=== PATIENT | female | born 1970 | race Hispanic/Latino ===

== ENCOUNTER 2016-05-30 17:34 | Emergency (ER) | payer MEDICARE, MEDICAID ==
[~2016-05-30] VITALS: Ht 160 cm; Wt 120.5 kg
[~2016-05-30 17:34] MED LIST: ALBU8.5H4 IH; EPIN0.3P2 IJ; ESTR1TAB24 PO; FURO40TA4 PO; METF500T4 PO; MULT-1007 PO; PANT40TA2 PO; POTA10TA7 PO; PROM25TA14 PO
[2016-05-30 17:38] VITALS: BP 147/103; PULSE 121; RESP 24; O2SAT 95
[2016-05-30] MEDS ORDERED: Albuterol-Ipratropium 3 mL Inhalation Solution NEB ONE (17:45)
[2016-05-30] MEDS ORDERED: Ipratropium 0.02% 0.5 mg/2.5 mL Inhalation Solution NEB ONE (17:50)
[2016-05-30] MEDS ORDERED: Albuterol 2.5 mg/3 mL Inhalation Solution NEB ONE (17:50)
--- NOTE | 2016-05-30 17:52 | ED.REPORT ---
HPI-Dyspnea / Wheezing Date of Service May 30, 2016 ED Provider: Zoltan Rosen MD A 46 year old female with a medical history including asthma, polycythemia vera , diabetes mellitus, and GERD presents to the ED with shortness of breath onset three weeks ago. The patient's symptoms began with a mild cough, which progressed to include posttussive emesis, wheezing, and chest pain described as "pressure." The patient denies other symptoms. She has had similar symptoms in the past associated with asthma. Nursing Notes Stated Complaint: ASTHMA/SOB Chief Complaint: Respiratory Distress Nursing Notes Reviewed: Yes ([place], [place] not reconciled) Allergies: Coded Allergies: Penicillins (Verified Allergy, Severe, anaphalaxis, 05/30/16) codeine (Verified Allergy, Severe, hives, 05/30/16) prochlorperazine (Verified Allergy, Unknown, UNKNOWN, 05/30/16) droperidol (Verified Adverse Reaction, Severe, vomiting, 05/30/16) metoclopramide HCl (Verified Adverse Reaction, Severe, vomiting, 05/30/16) Uncoded Allergies: bee stings (Allergy, Severe, anaphalaxis, 12/30/09) REGALAN (Allergy, Unknown, rash/vomiting, 09/29/14) Scheduled Albuterol HFA (Proair HFA) 8.5 Gm Hfa.aer.ad 2 PUFFS INHALATION Q4H Estradiol (Estradiol) 1 Mg Tablet 1 MG PO DAILY Furosemide (Furosemide) 40 Mg Tablet 40 MG PO DAILY Metformin (Metformin) 500 Mg Tablet 500 MG PO BIDWM Multivitamin (Multi-Vitamin Daily) 1 Each Tablet 1 EACH PO DAILY Pantoprazole DR (Protonix) 40 Mg Tablet.dr 40 MG PO BID Potassium Chloride ER (Klor-Con 10) 10 Meq Tablet.er 2 TAB PO BID Prednisone (PredniSONE) 20 Mg Tablet 60 MG PO DAILY Scheduled PRN Albuterol HFA (Albuterol HFA) 8.5 Gm Hfa.aer.ad 1-2 PUFF IH Q4 PRN PRN For Wheezing Epinephrine (Epipen 2-Carlos) 0.3 Mg/0.3 Ml Auto.injct 0.3 MG IJ PRN PRN PRN For Anaphyllaxis Promethazine (Promethazine) 25 Mg Tablet 25 MG PO TID PRN PRN For Nausea General Time Seen by MD: 17:50 Chief Complaint Shortness of breath Hx Obtained From: Patient Arrived By: Walk-in Sudden in Onset?: No Onset Occurred: More than a week ago... (3 weeks) Context of Onset: Asthma attack Symptom Duration: Since onset Location: : Chest left: Chest right Quality: Painful, Pressure Severity: Current: Moderate Severity: Maximum: Moderate Associated with: Reports: Cough, Wheeze Pertinent Negative: Relieved by nothing Context Asthma History: Asthma diagnosed Recent Healthcare: No recent doctor visit Similar Sx Previous: Yes Past Medical History Past Medical History Chronic pain Organic insomnia Polycythemia vera Dysfunctional uterine bleeding Chronic pelvic pain with recurring visits to ED for similar UTI's H/o pancreatitis (gallstone) in 1997 -> cholecystectomy Reports: Asthma, Diabetes mellitus, GERD, Peptic ulcer disease Past Surgical History laparoscopic hysterectomy, november 29, 2013 knee surgery Multiple ex laparoscopyies for chronic abdominal pain Reports: , Cholecystectomy, Hysterectomy Reports: Tubal ligation Family History Reviewed, not relevant. Smoking History Former Smoker Social History Alcohol Use: Denies alcohol use Drug Use: Denies drug use Other Social History: , Local resident Ambulatory Status Independent Review of Systems Constitutional: Denies: Fever Respiratory: Reports: Non-productive cough, Shortness of breath, Wheezing Cardiovascular: Reports: Chest pain (Pressure) Complete sys rev & neg: except as marked. GI: Reports: Vomiting (Posttussive), Denies: Diarrhea Physical Exam Initial Vital Signs Vital Signs (First) Date Time Temp Pulse Resp B/P Pulse Ox O2 Delivery O2 Flow Rate FiO2 05/30/16 17:38 36.6 121 24 147/103 95 Room Air Initial VS: Reviewed, Vital signs abnormal Head / Eyes: Atraumatic, Normocephalic ENT: Conjunctiva normal, No scleral icterus Skin: Warm, Dry, No cyanosis Neurologic: Alert, Oriented, Nonfocal Psychiatric: Mood/affect normal, Behavior normal, Normal thought content General/Constitutional: Awake, Alert Appearance / Presentation: Positive: Obese Neck: Supple, Full range of motion Respiratory / Chest: Breath sounds = bilat Resp Distress / Stridor: Positive: Resp distress severe, Speaks phrases (x4 words) Bronchospasms present Cardiovascular: Regular rhythm, Heart sounds NL Heart Rate / Rhythm: Positive: Tachycardia Interpretation & Diagnostics Lab Results Interpretation Result Diagram: 05/30/16181405/30/161814 Test 05/30/16 18:15 White Blood Count 13.8th/mm3 (3.8-10.1) Red Blood Count 5.63mil/mm3 (3.90-5.20) Hemoglobin 16.9g/dL (12.0-15.6) Hematocrit 51.2% (35.0-46.0) Mean Corpuscular Volume 90.9fL (81-100) Mean Corpuscular Hemoglobin 30.0pg (27.0-35.0) Mean Corpuscular Hemoglobin Concent 33.0% (32.0-37.0) Red Cell Distribution Width 13.8% (12.3-15.4) Platelet Count 328bil/L (150-400) Neutrophils (%) (Auto) 56.3% (40-74) Lymphocytes (%) (Auto) 31.9% (14-46) Monocytes (%) (Auto) 6.4% (4-12) Eosinophils (%) (Auto) 4.6% (0-5) Basophils (%) (Auto) 0.4% (0-3) Sodium Level 142mEq/L (134-144) Potassium Level 4.0mEq/L (3.5-5.2) Chloride Level 102mEq/L (97-108) Carbon Dioxide Level 22mmol/L (18-29) Blood Urea Nitrogen 14mg/dL (6-24) Creatinine 0.87mg/dL (0.57-1.00) Estimat Glomerular Filtration Rate 100mL/min (>59) Glucose Level 122mg/dL (60-99) Calcium Level 10.2mg/dL (8.5-10.1) Total Bilirubin 0.5mg/dL (0.0-1.2) Aspartate Amino Transf (AST/SGOT) 39U/L (0-50) Alanine Aminotransferase (ALT/SGPT) 40U/L (0-32) Alkaline Phosphatase 115U/L (25-150) Total Protein 7.9g/dL (6.4-8.4) Albumin 4.6g/dL (3.4-5.0) Hold Pak Top Tube Received (Received) Lab Results Interpretation: CBC mild leukocytosis, hemoconcentration CMP normal X-Ray Chest Interpretation Chest Xray Interpretation: IMPRESSION: No acute cardiopulmonary disease process. Dictated by: Kirti Morales MD, PhD on 05/30/2016 at 18:37 View: Portable, 1 view Interpretation / Wet Read by: Interpret - Radiologist Re-Eval/Medical Decision Med Decision/Clinical Course Physical 46-year-old female with a history of severe asthma has been out of all medicines that she is living in [place], has only recently returned to the area. She thinks she got exposed to something in [place], has been having increasing symptoms, admitted much worse in the past couple days. On arrival she is in significant respiratory stress and safely bronchospastic Patient received aggressive albuterol, Atrovent, steroids-and symptoms did resolve. She was worried, so chest x-ray was obtained and was negative for sergio infiltrate. I am not finding indication for Anaprox. She received an albuterol inhaler and spacer. She is being discharged on a five -day course of prednisone 60 mg daily. Routine precautions reviewed. Patient' s to reestablish with her PCP. She is discharged in much improved condition. Source of Hx: Old records Re-Evaluation/Progress : Time of Eval: 20:01 )( Re-Eval Resp / Chest: Breath sounds normal, No respiratory distress Patient Status: Condition improved Re-Evaluation/Progress Note: Patient rechecked. Discussed with patient x-ray and lab results, diagnosis, and plan for discharge. Follow-up and return to the ER instructions given. Patient agrees with plan for care and all questions were addressed. Differential Diagnosis: Positive: Asthma, Negative: Acute coronary syndrome, Airway obstruction, Allergic reaction, Carbon monoxide poisoning, Cardiogenic shock, Dysrhythmia, Exercise induced asthma, Myocardial infarction, Pneumonia, Pneumothorax, Pulmonary embolism, Respiratory failure Counseled Regarding: Diagnosis, Lab results, Need for follow-up, When/why to return to ED Discharge & Departure Impression: Primary Impression: Asthma with acute exacerbation Asthma severity: unspecified severity Qualified Code: J45.901 - Unspecified asthma with (acute) exacerbation Disposition: Home Discharge Condition All VS Reviewed: Yes Condition: Improved Additional Instructions: 1. No pneumonia was appreciated on x-ray. 2. Take prednisone 60 mg once a day for the next 5 days. 3. As the albuterol inhaler up to every 4 hours as needed. 4. Call Dr. Price for follow up. 5. Return if new or worsening symptoms. Referrals: Floyd Price MD (PCP) Scribe Attestation Portions of this note were transcribed by Marlene Hopkins. I, Dr. Rosen, personally performed the history, physical exam, and medical decision-making; I reviewed and confirmed the accuracy of the information in the transcribed note. Signed by: Marly Lozano, 05/30/2016, 20:15 copies to: Floyd Price MD, Matthew F MD May 30, 2016 17:52 MARLENE HOPKINS May 30, 2016 18:00
[2016-05-30] MEDS ORDERED: Magnesium Sulf 2 Gm/50mL Water 2 GM in IV Premix 1 EACH IV ONE (18:00)
[2016-05-30] MEDS ORDERED: MethylprednisoLONE Sodium Succinate 62.5 mg/mL 2 mL Inj IVPUSH ONE (18:00)
[2016-05-30 18:11] VITALS: PULSE 86; RESP 18; O2SAT 96
[2016-05-30 18:21] LABS: BASOPHILS % (AUTO) 0.4 % (0-3); EOSINOPHILS % (AUTO) 4.6 % (0-5); MONOCYTES % (AUTO) 6.4 % (4-12); Mean Corpuscular Volume 90.9 fL (81-100); NEUTROPHILS % (AUTO) 56.3 % (40-74); Platelet Count 328 bil/L (150-400)
--- NOTE | 2016-05-30 18:39 | DRSVH ---
PROCEDURE: X-RAY CHEST ONE VIEW, PORTABLE ([id number]) INDICATIONS: SOB TECHNIQUE: One view of the chest was acquired. COMPARISON: [facility], [facility], XR CHEST 2VW, 05/16/2015, 21:58. FINDINGS: Surgical changes and devices: Cystectomy clips. Lungs and pleura: No pleural effusions or pneumothorax. Lungs are clear. Mediastinum: Mediastinal contours appear normal. Heart size is normal. Bones and chest wall: No suspicious bony lesions. Overlying soft tissues appear unremarkable. IMPRESSION: No acute cardiopulmonary disease process. Dictated by: Kirti Morales MD, PhD on 05/30/2016 at 18:37 Approved by: Kirti Morales MD, PhD on 05/30/2016 at 18:37
[2016-05-30] MEDS ORDERED: Albuterol HFA 60 Puff 8 Gm Inhaler INHALATION ONE (20:05)
[2016-05-30] MEDS ORDERED: PRE20 PO (20:06)
[2016-05-30] MEDS ORDERED: ALBU8.5H2 INHALATION (20:06)
[2016-05-30 20:36] VITALS: BP 153/71; PULSE 110; RESP 18; O2SAT 96
[2016-07-30] MEDS ORDERED: FURO40TA4 PO (15:52)
== END 2016-05-30 20:37 | disposition home or self-care (01) ==
LOC: SED 17:34
DX: J45.901 Unspecified asthma with (acute) exacerbation (principal); K21.9 Gastro-esophageal reflux disease without esophagitis; E11.9 Type 2 diabetes mellitus without complications; Z79.84 Long term (current) use of oral hypoglycemic drugs; Z87.891 Personal history of nicotine dependence; Z88.0 Allergy status to penicillin; Z88.5 Allergy status to narcotic agent; Z88.8 Allergy status to other drugs, medicaments and biological substances
CPT/HCPCS: 36415; 71010; 80053; 85025; 94644; 96374; 96375; 99285; J2930; J7613; J7620

== ENCOUNTER 2016-07-05 02:23 | Emergency (ER) | payer MEDICARE, MEDICAID ==
[~2016-07-05] VITALS: Ht 160 cm; Wt 113.6 kg
[~2016-07-05 02:23] MED LIST changes: +ALBU8.5H2 INHALATION; +PRE20 PO
[2016-07-05 02:27] VITALS: BP 136/92; PULSE 91; RESP 18; O2SAT 96
--- NOTE | 2016-07-05 03:08 | ED.REPORT ---
HPI-Headache Date of Service July 05, 2016 ED Provider: Cosme Ngo MD The pt is a 46 y/o female w/ a hx of chronic pain presenting to the ED complaining of a headache onset 1 week ago. She saw her PCP on Thursday and was told her blood work was "abnormal. This morning she woke up at 0130 due to severe pain radiating down her spine which caused her to experience bilat hand and foot numbness. She is not taking any blood thinners. Nursing Notes Stated Complaint: HEADACHE Chief Complaint: Headache Nursing Notes Reviewed: Yes Allergies: Coded Allergies: Penicillins (Verified Allergy, Severe, anaphalaxis, 05/30/16) codeine (Verified Allergy, Severe, hives, 05/30/16) prochlorperazine (Verified Allergy, Unknown, UNKNOWN, 05/30/16) droperidol (Verified Adverse Reaction, Severe, vomiting, 05/30/16) metoclopramide HCl (Verified Adverse Reaction, Severe, vomiting, 05/30/16) Uncoded Allergies: bee stings (Allergy, Severe, anaphalaxis, 12/30/09) REGALAN (Allergy, Unknown, rash/vomiting, 09/29/14) Scheduled Albuterol HFA (Proair HFA) 8.5 Gm Hfa.aer.ad 2 PUFFS INHALATION Q4H Estradiol (Estradiol) 1 Mg Tablet 1 MG PO DAILY Furosemide (Furosemide) 40 Mg Tablet 40 MG PO DAILY Metformin (Metformin) 500 Mg Tablet 500 MG PO BIDWM Multivitamin (Multi-Vitamin Daily) 1 Each Tablet 1 EACH PO DAILY Pantoprazole DR (Protonix) 40 Mg Tablet.dr 40 MG PO BID Potassium Chloride ER (Klor-Con 10) 10 Meq Tablet.er 2 TAB PO BID Prednisone (PredniSONE) 20 Mg Tablet 60 MG PO DAILY Scheduled PRN Albuterol HFA (Albuterol HFA) 8.5 Gm Hfa.aer.ad 1-2 PUFF IH Q4 PRN PRN For Wheezing Epinephrine (Epipen 2-Carlos) 0.3 Mg/0.3 Ml Auto.injct 0.3 MG IJ PRN PRN PRN For Anaphyllaxis Promethazine (Promethazine) 25 Mg Tablet 25 MG PO TID PRN PRN For Nausea General Time Seen by MD: 03:08 Chief Complaint Headache Hx Obtained From: Patient Arrived By: Walk-in Sudden in Onset?: Yes Onset Occurred: 1 week ago Symptom Duration: Since onset Recent Healthcare: No recent hospitalization, Recent doctor visit Similar Sx Previous: Yes Past Medical History Past Medical History Chronic pain Organic insomnia Polycythemia vera Dysfunctional uterine bleeding Chronic pelvic pain with recurring visits to ED for similar UTI's H/o pancreatitis (gallstone) in 1997 -> cholecystectomy Reports: Asthma, Diabetes mellitus, GERD, Peptic ulcer disease Past Surgical History laparoscopic hysterectomy, november 29, 2013 knee surgery Multiple ex laparoscopyies for chronic abdominal pain Reports: , Cholecystectomy, Hysterectomy Reports: Tubal ligation Family History Reviewed, not relevant. Smoking History Former Smoker Social History Alcohol Use: Denies alcohol use Drug Use: Denies drug use Other Social History: , Local resident Ambulatory Status Independent Review of Systems Musculoskeletal: Reports: Back pain, Extremity pain (bilat hands and feet ) Neurologic: Reports: Headache, Numbness (bilat hands and feet) Complete sys rev & neg: except as marked. Physical Exam Initial Vital Signs Vital Signs (First) Date Time Temp Pulse Resp B/P Pulse Ox O2 Delivery O2 Flow Rate FiO2 07/05/16 02:27 35.9 91 18 136/92 96 Room Air Initial VS: Reviewed General/Constitutional: Awake, Alert Head / Eyes: Atraumatic, Normocephalic Neck: Atraumatic, Supple, Full range of motion Neurologic: Oriented X3, Speech NL Non focal ENT: Atraumatic, Airway patent, Mucous membranes moist Respiratory / Chest: Breath sounds NL, Breath sounds = bilat, No respiratory distress, No rales, No rhonchi, No wheezing Cardiovascular: Heart rate NL, Regular rhythm, Heart sounds NL, Peripheral circulation NL Skin: Atraumatic, Color NL, No rash, Warm, Dry Psychiatric: Affect NL, Mood NL, Cognitive function NL, Thought content NL Upper Extremity / MS: Atraumatic, Inspection NL, Full range of motion Interpretation & Diagnostics Lab Results Interpretation Result Diagram: 07/05/16 0305 07/05/16 030 Test 07/05/16 03:05 White Blood Count 12.4th/mm3 (3.8-10.1) Red Blood Count 5.39mil/mm3 (3.90-5.20) Hemoglobin 16.3g/dL (12.0-15.6) Hematocrit 48.0% (35.0-46.0) Mean Corpuscular Volume 89.1fL (81-100) Mean Corpuscular Hemoglobin 30.2pg (27.0-35.0) Mean Corpuscular Hemoglobin Concent 34.0% (32.0-37.0) Red Cell Distribution Width 13.9% (12.3-15.4) Platelet Count 290bil/L (150-400) Neutrophils (%) (Auto) 52.1% (40-74) Lymphocytes (%) (Auto) 37.8% (14-46) Monocytes (%) (Auto) 5.6% (4-12) Eosinophils (%) (Auto) 3.5% (0-5) Basophils (%) (Auto) 0.3% (0-3) Erythrocyte Sedimentation Rate 1mm/hr (0-32) Prothrombin Time 56.3sec (8.1-12.5) Prothromb Time International Ratio 5.09ratio Activated Partial Thromboplast Time 65.1sec (22.8-33.0) Sodium Level 141mEq/L (134-144) Potassium Level 3.7mEq/L (3.5-5.2) Chloride Level 102mEq/L (97-108) Carbon Dioxide Level 24mmol/L (18-29) Blood Urea Nitrogen 11mg/dL (6-24) Creatinine 0.59mg/dL (0.57-1.00) Estimat Glomerular Filtration Rate 156mL/min (>59) Glucose Level 141mg/dL (60-99) Calcium Level 9.6mg/dL (8.5-10.1) Total Bilirubin 0.3mg/dL (0.0-1.2) Direct Bilirubin 0.2mg/dL (0.0-0.3) Aspartate Amino Transf (AST/SGOT) 42U/L (0-50) Alanine Aminotransferase (ALT/SGPT) 52U/L (0-32) Alkaline Phosphatase 122U/L (25-150) C-Reactive Protein 1.2mg/dL (0.0-0.5) Total Protein 7.3g/dL (6.4-8.4) Albumin 3.9g/dL (3.4-5.0) Hold Pak Top Tube Received (Received) Re-Eval/Medical Decision Med Decision/Clinical Course 46-year-old presents with a week of headache, worse tonight. She has an unexpected and unexplained elevation of her INR and PTT. Repeat now pending and vitamin K given. No explanation by virtue of liver failure or other obvious explanation. Plan to repeat INR, follow INR after menstruation vitamin K. CT of her cranium is negative for acute bleeding and a spinal tap was clearly not indicated in the setting of significant anticoagulation. Headache I think is incidental and not the result of bleeding. Signed out at [address] Cosby. Source of Hx: Old records Counseled Regarding: Diagnosis, Lab results, Need for follow-up, When/why to return to ED Discharge & Departure Impression: Primary Impression: Headache Additional Impression: Anticoagulated Disposition: Home Discharge Condition All VS Reviewed: Yes Condition: Stable Referrals: Floyd Price MD (PCP) Care Transferred to: Dr. Cosby Care Transferred at: 05:58 Scribe Attestation Portions of this note were transcribed by Fortunato Vela. I, Dr. Ngo personally performed the history, physical exam and medical decision-making; I reviewed and confirmed the accuracy of the information in the transcribed note. Signed by : Marly Bojorquez, 07/05/16 and 0444. copies to: Floyd Price MD, Christopher W MD July 05, 2016 03:08 Fortunato Vela July 05, 2016 04:44
[2016-07-05] MEDS ORDERED: Dexamethasone 10 mg/mL Inj IVPUSH ONE (03:20)
[2016-07-05] MEDS ORDERED: 0.9% Sodium Chloride 1,000 ML IV ONE (03:20)
[2016-07-05] MEDS ORDERED: Ondansetron 2 mg/mL 2 mL Inj IVPUSH ONE (03:20)
[2016-07-05 03:35] LABS: BASOPHILS % (AUTO) 0.3 % (0-3); EOSINOPHILS % (AUTO) 3.5 % (0-5); MONOCYTES % (AUTO) 5.6 % (4-12); Mean Corpuscular Hemoglobin 30.2 pg (27.0-35.0); Mean Corpuscular Volume 89.1 fL (81-100); NEUTROPHILS % (AUTO) 52.1 % (40-74); Platelet Count 290 bil/L (150-400)
[2016-07-05 03:53] LABS: ERYTHROCYTE SEDIMENTATION RATE 1 mm/hr (0-32)
[2016-07-05 03:56] LABS: INR 5.09 ratio
[2016-07-05 04:32] LABS: Bilirubin, Direct 0.2 mg/dL (0.0-0.3)
[2016-07-05] MEDS ORDERED: Phytonadione (Adult) 10 MG in Dextrose 5%-Pha MIX 50 ML IV ONE (05:10)
[2016-07-05 06:02] VITALS: BP 117/66; PULSE 83; RESP 20; O2SAT 93
[2016-07-05 07:14] LABS: INR 5.05 ratio
--- NOTE | 2016-07-05 08:56 | DRSVH ---
PROCEDURE: CT BRAIN WITHOUT CONTRAST [id number]) INDICATIONS: lau, anticoagulated TECHNIQUE: Noncontrast 4.5 mm thick angled axial sections acquired from the foramen magnum to the vertex, with c oronal reformats. COMPARISON: [facility], CT, BRAIN W/O CONTRAST, 10/17/2013, 3:35. FINDINGS: Image quality: Excellent. CSF spaces: Basal cisterns are patent. No extra-axial fluid collections. Ventricles are normal in size and shape. Brain: No midline shift. No intracranial masses or hemorrhage. Alba-white matter interface is norm al. Skull and face: Calvarium and visualized facial bones are intact, without suspicious lesions. Sinuses: Visualized sinuses and mastoids are clear. IMPRESSION: No acute process. Concordant with preliminary interpretation. Dictated by: Rhona Monterroso M.D. on 07/05/2016 at 8:54 Approved by: Rhona Monterroso M.D. on 07/05/2016 at 8:54
== END 2016-07-05 08:33 | disposition home or self-care (01) ==
LOC: SED 02:23
DX: R51 Headache (principal); R79.1 Abnormal coagulation profile; R20.2 Paresthesia of skin; R10.2 Pelvic and perineal pain; G89.29 Other chronic pain; J45.909 Unspecified asthma, uncomplicated; E11.9 Type 2 diabetes mellitus without complications; K21.9 Gastro-esophageal reflux disease without esophagitis; Z87.11 Personal history of peptic ulcer disease; Z87.891 Personal history of nicotine dependence; Z79.84 Long term (current) use of oral hypoglycemic drugs; Z88.0 Allergy status to penicillin; Z88.5 Allergy status to narcotic agent; Z88.8 Allergy status to other drugs, medicaments and biological substances
CPT/HCPCS: 36415; 70450; 80048; 80076; 85025; 85610; 85651; 85730; 86038; 86140; 96361; 96374; 96375; 99285; J1100; J1200; J1885; J2405; J3430; J7030